=== PATIENT | female | born 1965 | race Caucasian/White ===

== ENCOUNTER → 2016-10-13 | Outpatient (CLI) | payer OTHER ==
[~2016-10-13] MED LIST: BUPR300T33 PO; VENL75CA46 PO
--- NOTE | 2016-10-13 10:38 | DI ---
Indication: ITS.REASON: RHEUMATOID ARTHRITIS RT LEG, RIGHT ANKLE, RIGHT KNEE PROCEDURE: ANKLE RIGHT 2 VIEW: Encounter: Initial Comparison: None Findings: No acute fracture or dislocation. 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 Old deformity in the distal fibula, presumably from prior trauma. 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 .
--- NOTE | 2016-10-13 10:44 | DI ---
Indication: ITS.REASON: RHEUMATOID ARTHRITIS RT LEG, RIGHT ANKLE, RIGHT KNEE PROCEDURE: KNEE RIGHT 2 VIEW: Encounter: Initial Comparison: None Findings: There is no acute fracture, dislocation or malalignment identified. Mild lateral joint space narrowing. Impression: No acute osseous abnormality. .
== END ==
LOC: IMA 09:49
PROVIDERS: ATTEND Neuromusculoskeletal Medicine, Sports Medicine
DX: M06.261 Rheumatoid bursitis, right knee (principal); M06.2 Rheumatoid bursitis